=== PATIENT | female | born 1955 | race Caucasian/White ===

== ENCOUNTER → 2022-07-24 09:47 | Outpatient (CLI) | payer MEDICARE, BC, SELFPAY | PROVIDERS: PCP Physician Assistant Medical; Visit Provider Physician Assistant Medical | DX: R10.9 Unspecified abdominal pain (principal) | CPT/HCPCS: 87086 ==

== ENCOUNTER 2022-07-24 14:46 | Emergency (ER) | payer MEDICARE, BC, SELFPAY ==
[2022-07-24 15:51] VITALS: BP 104/59; PULSE 88; RESP 16; TEMP 36.9; O2SAT 100; BMI 31.8
--- NOTE | 2022-07-24 15:58 | DI.RAD.S_ITS ---
PROCEDURE: XR CHEST 1V INDICATIONS: chest pain TECHNIQUE: One view of the chest was acquired. COMPARISON: [facility], CT, CT ABDOMEN PELVIS W CON, 07/24/2022, 16:49. FINDINGS: Surgical changes and devices: None. Lungs and pleura: No consolidation. Bibasilar atelectasis. No pleural effusions or pneumothorax. Mediastinum: Mediastinal contours appear normal. Heart size is normal. Bones and chest wall: No suspicious bony lesions. Prior right proximal humerus fracture. Overlying soft tissues appear unremarkable. IMPRESSION: Bibasilar atelectasis. Dictated by: Blayne Brennan M.D. on 07/24/2022 at 17:40 Approved by: Blayne Brennan M.D. on 07/24/2022 at 17:41
[2022-07-24 16:28] LABS: Add Manual Diff / Slide Review NO; Basophils Absolute Auto 0 /uL (0-100); Basophils Percent Auto 0.3 % (0-2); Eosinophils Absolute Auto 0 /uL (0-450); Eosinophils Percent Auto 0.1 % (2-4); Hematocrit 45.9 % (36-46); Hemoglobin 15.4 g/dL (12.0-16.0); Lymphocytes Absolute Auto 1000 /uL (1100-4500); Lymphocytes Percent Auto 6.2 % (25-40); Mean Corpuscular HGB Conc 33.5 % (30-36); Mean Corpuscular Hemoglobin 29.3 PG (26-34); Mean Corpuscular Volume 87.4 fL (80-100); Monocytes Absolute Auto 500 /uL (0-900); Monocytes Percent Auto 3.4 % (3-14); Neutrophils Absolute Auto 14000 /uL (1500-7000); Platelet Count 300 X10^3/uL (150-400); Red Blood Cell Count 5.25 X10^6/uL (4.0-5.2); Red Cell Distribution Width 14.4 % (11.6-14.8); White Blood Cell Count 15.6 X10^3/uL (4.5-11.0)
--- NOTE | 2022-07-24 16:37 | ED.GENADULT ---
HPI - General Adult General Chief complaint: Abdominal Pain Stated complaint: abd pain since 0400 Time Seen by Provider: 07/24/22 16:23 Source: patient Mode of arrival: Wheelchair History of Present Illness HPI narrative: Patient is a 67-year-old female who is here for evaluation of generalized abdominal pain since 0400 hours this morning. Has had quite a bit of nausea. No diarrhea. No urinary symptoms. She went to the clinic on [address] who told her that she had a urinary tract infection but did not start her on any antibiotics. Patient was sent here to the emergency department for further evaluation. She does describe cramping but she feels it is more muscular cramping rather than intestinal cramping. No fevers. No prior abdominal surgeries. Hard for her to completely describe where she is having the discomfort is more generalized pain. No chest pain. Related Data Home Medications Medication Instructions Recorded Confirmed levothyroxine 75 mcg capsule 75 mcg PO DAILY 07/24/22 07/24/22 sertraline 25 mg tablet 25 mg PO DAILY 07/24/22 07/24/22 Previous Rx's Medication Instructions Recorded dicyclomine 10 mg capsule 10 mg PO TID PRN Abdominal spasms 07/24/22 #20 caps metoclopramide HCl 10 mg tablet 10 mg PO Q6H PRN nausea and 07/24/22 (Reglan) vomiting #10 tabs Allergies Allergy/AdvReac Type Severity Reaction Status Date / Time No Known Drug Allergies Allergy Verified 07/24/22 09:14 Review of Systems Review of Systems ROS Unobtainable: All systems reviewed & are unremarkable except as noted in HPI and below Patient History Social History Smoking Status: Never smoker Smoking Status: Never smoker alcohol intake frequency: a few times a month Substance Use Type: does not use Exam Initial Vital Signs Initial Vital Signs: Vital Signs Temperature 98.5 F 07/24/22 15:51 Pulse Rate 88 07/24/22 15:51 Respiratory Rate 16 07/24/22 15:51 Blood Pressure 104/59 L 07/24/22 15:51 Pulse Oximetry 100 07/24/22 15:51 Oxygen Delivery Method Room Air 07/24/22 15:51 Const General: cooperative, comfortable and No ill appearing [facility] Head: normal to inspection and normocephalic Resp Effort & Inspection: normal respiratory effort Auscultation: clear to auscultation bilaterally Cardio Rate: regular rate Rhythm: regular rhythm GI Inspection: normal to inspection and non-distended Palpation: No firm, No guarding and tender (Diffuse tenderness) Skin General: no rashes or lesions noted Neuro General: patient alert, patient awake, patient oriented x3 and moves all extremities Extrem General: normal to inspection and capillary refill normal Course Orders Ordered: ED Orders 07/24/22 15:58 XR chest 1V Stat 07/24/22 16:05 EKG-12 Lead Stat 07/24/22 16:11 COVID19 -Nasal RAPID Stat Complete Blood Count AUTO DIFF Stat Comprehensive Metabolic Panel Stat Lipase Stat Magnesium Stat PTT Partial Thromboplastin Michael Stat Prothrombin Time INR Stat Troponin & CK Cardiac Panel Stat Urine Microscopic Stat 07/24/22 16:38 CT abdomen pelvis w con Stat 07/24/22 17:54 US abdomen limited Stat Discontinued Medications Aspirin (Aspirin 81 Mg Chew Tab) 324 mg PO NOW ONE Stop: 07/24/22 15:59 Last Admin: 07/24/22 16:44 Dose: Not Given Documented By: BARB Metoclopramide HCl (Metoclopramide 10 Mg/2 Ml Inj) 10 mg IV NOW ONE Stop: 07/24/22 19:13 Morphine Sulfate (Morphine 4 Mg/Ml Inj) 4 mg IV NOW ONE Stop: 07/24/22 16:39 Last Admin: 07/24/22 16:48 Dose: 4 mg Documented By: BARB Ondansetron HCl (Ondansetron 4 Mg/2 Ml Inj) 4 mg IV NOW ONE Stop: 07/24/22 16:39 Last Admin: 07/24/22 16:51 Dose: 4 mg Documented By: BARB Vital Signs Vital signs: Vital Signs - 8 hr 07/24/22 15:51 07/24/22 17:08 07/24/22 18:34 Temperature 98.5 F Pulse Rate 88 85 93 H Respiratory Rate 16 20 25 H Blood Pressure 104/59 L 95/51 L 97/55 L Pulse Oximetry 100 99 98 Oxygen Delivery Method Room Air Room Air Room Air Medical Decision Making Lab Data Lab results reviewed: Yes I reviewed the patient's lab results. 07/24/22 16:11 07/24/22 16:11 Labs: Lab Results 07/24/22 07/24/22 07/24/22 Range/Units 16:11 16:11 16:11 WBC 15.6 H (4.5-11.0) X10^3/uL RBC 5.25 H (4.0-5.2) X10^6/uL Hgb 15.4 (12.0-16.0) g/dL Hct 45.9 (36-46) % MCV 87.4 (80-100) fL MCH 29.3 (26-34) PG MCHC 33.5 (30-36) % RDW 14.4 (11.6-14.8) % Plt Count 300 (150-400) X10^3/uL Neut % (Auto) 90.0 H (50-75) % Lymph % (Auto) 6.2 L (25-40) % [place] % (Auto) 3.4 (3-14) % Eos % (Auto) 0.1 L (2-4) % Baso % (Auto) 0.3 (0-2) % Neut # (Auto) 34044 H (0591-0343) /uL Lymph # (Auto) 1000 L (9143-0913) /uL [place] # (Auto) 500 (0-900) /uL Eos # (Auto) 0 (0-450) /uL Baso # (Auto) 0 (0-100) /uL PT 12.6 (10.1-12.7) SECONDS INR 1.1 (0.9-1.3) APTT 30 (26-36) SECONDS Sodium 137 (137-145) mmol/L Potassium 4.2 (3.4-5.1) mmol/L Chloride 102 (98-107) mmol/L Carbon Dioxide 27 (22-32) mmol/L BUN 19 H (7-17) mg/dL Creatinine 0.76 (0.52-1.04) mg/dL Estimated GFR > 60 (>60) mL/min BUN/Creatinine Ratio 25.0 H (6-22) Glucose 112 H (80-110) mg/dL Calcium 8.8 (8.4-10.2) mg/dL Magnesium 2.2 (1.6-2.3) mg/dL Total Bilirubin 0.9 (0.2-1.3) mg/dL AST 26 (14-36) IU/L ALT 26 (<35) IU/L Alkaline Phosphatase 71 (38-126) U/L Total Creatine Kinase 58 (30-135) U/L CK-MB (CK-2) TNP CK-MB (CK-2) Rel Index TNP Troponin I < 0.012 (0.01-0.034) ng/mL Total Protein 7.4 (6.3-8.2) g/dL Albumin 4.3 (3.5-5.0) g/dL Globulin 3.1 (1.7-4.1) g/dL Albumin/Globulin Ratio 1.4 (1.0-2.8) Lipase 96 (23-300) U/L Urine RBC (0-5/HPF) Urine WBC (0-5/HPF) Ur Squamous Epith Cells (0-5/HPF) Urine Bacteria (None) Hyaline Casts (None) Ur Culture Indicated? SARS-CoV-2 (PCR) (Negative) 07/24/22 07/24/22 Range/Units 16:11 16:11 WBC (4.5-11.0) X10^3/uL RBC (4.0-5.2) X10^6/uL Hgb (12.0-16.0) g/dL Hct (36-46) % MCV (80-100) fL MCH (26-34) PG MCHC (30-36) % RDW (11.6-14.8) % Plt Count (150-400) X10^3/uL Neut % (Auto) (50-75) % Lymph % (Auto) (25-40) % [place] % (Auto) (3-14) % Eos % (Auto) (2-4) % Baso % (Auto) (0-2) % Neut # (Auto) (1032-1100) /uL Lymph # (Auto) (9436-0395) /uL [place] # (Auto) (0-900) /uL Eos # (Auto) (0-450) /uL Baso # (Auto) (0-100) /uL PT (10.1-12.7) SECONDS INR (0.9-1.3) APTT (26-36) SECONDS Sodium (137-145) mmol/L Potassium (3.4-5.1) mmol/L Chloride (98-107) mmol/L Carbon Dioxide (22-32) mmol/L BUN (7-17) mg/dL Creatinine (0.52-1.04) mg/dL Estimated GFR (>60) mL/min BUN/Creatinine Ratio (6-22) Glucose (80-110) mg/dL Calcium (8.4-10.2) mg/dL Magnesium (1.6-2.3) mg/dL Total Bilirubin (0.2-1.3) mg/dL AST (14-36) IU/L ALT (<35) IU/L Alkaline Phosphatase (38-126) U/L Total Creatine Kinase (30-135) U/L CK-MB (CK-2) CK-MB (CK-2) Rel Index Troponin I (0.01-0.034) ng/mL Total Protein (6.3-8.2) g/dL Albumin (3.5-5.0) g/dL Globulin (1.7-4.1) g/dL Albumin/Globulin Ratio (1.0-2.8) Lipase (23-300) U/L Urine RBC 1-5/hpf (0-5/HPF) Urine WBC 1-5/hpf (0-5/HPF) Ur Squamous Epith Cells 1-5 /hpf (0-5/HPF) Urine Bacteria Few (2-10) H (None) Hyaline Casts 0-1/lpf (None) Ur Culture Indicated? Cult not indicated SARS-CoV-2 (PCR) Negative (Negative) Urine Dip Bedside Urine Glucose Negative Bedside Urine Bilirubin + 1 Bedside Urine Ketone +/- 5 Urine Specific [place] 1.025 Bedside Urine Occult Blood - Negative Bedside Urine pH 5.5 Bedside Urine Protein + 30 Bedside Urine Urobilinogen - Negative Bedside Urine Nitrite - Negative Bedside Urine Leukocytes - Negative Esterase Point of care testing: Urine Dip Bedside Urine Glucose Negative Bedside Urine Bilirubin + 1 Bedside Urine Ketone +/- 5 Urine Specific [place] 1.025 Bedside Urine Occult Blood - Negative Bedside Urine pH 5.5 Bedside Urine Protein + 30 Bedside Urine Urobilinogen - Negative Bedside Urine Nitrite - Negative Bedside Urine Leukocytes - Negative Esterase Imaging Data Chest x-ray: Radiologist's Impression: PROCEDURE:? XR CHEST 1V ? INDICATIONS:? chest pain ? TECHNIQUE:? One view of the chest was acquired.? ? COMPARISON:? [facility], CT, CT ABDOMEN PELVIS W CON, 07/24/2022, 16:49. ? FINDINGS:? ? Surgical changes and devices:? None.? ? Lungs and pleura:? No consolidation.? Bibasilar atelectasis.? No pleural effusions or pneumothorax.? ? Mediastinum:? Mediastinal contours appear normal.? Heart size is normal.? ? Bones and chest wall:? No suspicious bony lesions.? Prior right proximal humerus fracture.? Overlying soft tissues appear unremarkable.? ? IMPRESSION:? Bibasilar atelectasis. CT scan - abdomen/pelvis: Radiologist's Impression: PROCEDURE:? CT ABDOMEN PELVIS W CON ? INDICATIONS:? Generalized abdominal pain ? TECHNIQUE:? After the administration of IV contrast, axial sections were acquired from the lung bases to the pubic symphysis.? Coronal and sagittal reformats were performed.? For radiation dose reduction, the following was used:? automated exposure control, adjustment of mA and/or kV according to patient size. ? COMPARISON:? None. ? FINDINGS:? Image quality:? Excellent.? ? Lung bases:? Linear bibasilar opacities likely scarring versus atelectasis. Heart:? No significant findings. ? ? ABDOMEN: Liver:? Liver is enlarged measuring 18.3 cm. Gallbladder:? Unremarkable.? ? Biliary ducts:? Unremarkable.? ? Pancreas:? Unremarkable.? ? Spleen:? Unremarkable.? ? Adrenal Glands:? Unremarkable.? ? Kidneys and Ureters:? Unremarkable.? ? ? Stomach and Bowel:? Stomach, small bowel loops, and colon are nonobstructive.? There is a very minimal appearance of stranding in the pericolonic fat adjacent to scattered small bowel loops.? However, bowel loops do not demonstrate appreciable wall thickening.? There is a 4.7 cm rounded focus what appears to be dilated bowel with air and contents inferior to the pancreatic head on series 2, image 40. Origin is difficult to definitively visualize, although suspected to be related to small bowel.? Peritoneum:? No abnormal intraperitoneal fluid.? No free air.? ? Ventral Wall: ? No hernia.? Abdominal Nodes:? No retroperitoneal or mesenteric adenopathy by size criteria.? Vessels:? Aorta and inferior vena cava are normal in size.? ? PELVIS: Pelvic Organs:? Unremarkable.? ? Bladder:? Unremarkable.? ? Pelvic Nodes: No enlarged lymph nodes.? Miscellaneous: No inguinal hernias are seen. ? ? ? Bones:? Unremarkable.? IMPRESSION:? ? Focus of air and apparent bowel contents within the mid abdomen as described above.? This is suspected to be related to a loop of bowel or potentially prominent proximal small bowel diverticulum.? However, origin is poorly characterized.? As clinically indicated for further evaluation on a nonemergent basis, repeat study with oral contrast is recommended. ? ? Nonspecific appearance mild stranding within the mesenteric fat adjacent to scattered bowel loops, separate from the above described probable diverticulum.? Given lack of small bowel thickening.? This may represent mild appearance in general inflammation. US - abdomen: Radiologist's Impression: PROCEDURE: US ABDOMEN LIMITED ? INDICATIONS:? RUQ EVAL FOR GB PATHOLOGY ? TECHNIQUE:? Real-time focused scanning was performed of the abdomen, with image documentation.? ? COMPARISON:? [facility], CT, CT ABDOMEN PELVIS W CON, 07/24/2022, 16:49. ? FINDINGS:? Liver measures 15.6 cm. Sludge is present within the gallbladder.? Wall thickness is normal measuring 2.3 mm.? Common bile duct measures 5.1 mm. ? IMPRESSION:? Mild gallbladder sludge.? Otherwise, unremarkable.? ECG Data Attestation: I personally reviewed and interpreted this ECG as follows: Interpretation: Sinus rhythm Ventricular rate 80 Normal axis Normal QRS Normal QTC No ST T wave changes MDM Narrative Medical decision making narrative: Her urinalysis today is not consistent with a urinary tract infection. She does have a leukocytosis. Her right upper quadrant ultrasound does show sludge but no signs of acute cholecystitis. Her LFTs and bilirubin are unremarkable. She does have nonspecific inflammation of her colon. No signs of bowel obstruction or diverticulitis or perforations or appendicitis. Patient is not having any diarrhea. I did discuss all this with her. We also discussed the possibility of a small-bowel diverticulum in the she needs to follow up with her primary doctor regarding this. Has no indication for antibiotics. No indication for surgical consultation will discharge patient home with return precautions and nausea medications. She expressed understanding and agreement. Discharge Plan Departure Patient Disposition: Home Clinical Impression: Abdominal pain Instructions: DI for Abdominal Pain-Adult Activity Restrictions/Additional Instructions: I do recommend that you use the nausea medication and also the antispasm medication as needed and as directed. Is also important that you contact your primary doctor when you return home for further evaluation of the incidental findings noted on the CT scan. Return to an emergency department for new or worsening symptoms. Prescriptions: New metoclopramide HCl [Reglan] 10 mg tablet 10 mg PO Q6H PRN (Reason: nausea and vomiting) Qty: 10 0RF dicyclomine 10 mg capsule 10 mg PO TID PRN (Reason: Abdominal spasms) Qty: 20 0RF No Action levothyroxine 75 mcg capsule 75 mcg PO DAILY Rx Instructions: 6 times a week sertraline 25 mg tablet 25 mg PO DAILY Stand Alone Forms: Patient Portal/API
--- NOTE | 2022-07-24 16:38 | DI.CT.S_ITS ---
PROCEDURE: CT ABDOMEN PELVIS W CON INDICATIONS: Generalized abdominal pain TECHNIQUE: After the administration of IV contrast, axial sections were acquired from the lung bases to the pubic symphysis. Coronal and sagittal reformats were performed. For radiation dose reduction, the following was used: automated exposure control, adjustment of mA and/or kV according to patient size. COMPARISON: None. FINDINGS: Image quality: Excellent. Lung bases: Linear bibasilar opacities likely scarring versus atelectasis. Heart: No significant findings. ABDOMEN: Liver: Liver is enlarged measuring 18.3 cm. Gallbladder: Unremarkable. Biliary ducts: Unremarkable. Pancreas: Unremarkable. Spleen: Unremarkable. Adrenal Glands: Unremarkable. Kidneys and Ureters: Unremarkable. Stomach and Bowel: Stomach, small bowel loops, and colon are nonobstructive. There is a very minimal appearance of stranding in the pericolonic fat adjacent to scattered small bowel loops. However, bowel loops do not demonstrate appreciable wall thickening. There is a 4.7 cm rounded focus what appears to be dilated bowel with air and contents inferior to the pancreatic head on series 2, image 40. Origin is difficult to definitively visualize, although suspected to be related to small bowel. Peritoneum: No abnormal intraperitoneal fluid. No free air. Ventral Wall: No hernia. Abdominal Nodes: No retroperitoneal or mesenteric adenopathy by size criteria. Vessels: Aorta and inferior vena cava are normal in size. PELVIS: Pelvic Organs: Unremarkable. Bladder: Unremarkable. Pelvic Nodes: No enlarged lymph nodes. Miscellaneous: No inguinal hernias are seen. Bones: Unremarkable. IMPRESSION: Focus of air and apparent bowel contents within the mid abdomen as described above. This is suspected to be related to a loop of bowel or potentially prominent proximal small bowel diverticulum. However, origin is poorly characterized. As clinically indicated for further evaluation on a nonemergent basis, repeat study with oral contrast is recommended. Nonspecific appearance mild stranding within the mesenteric fat adjacent to scattered bowel loops, separate from the above described probable diverticulum. Given lack of small bowel thickening. This may represent mild appearance in general inflammation. Dictated by: Luz Carrero M.D. on 07/24/2022 at 17:31 Approved by: Luz Carrero M.D. on 07/24/2022 at 17:37
[2022-07-24 16:40] LABS: Alanine Aminotransferase 26 IU/L (<35); Albumin 4.3 g/dL (3.5-5.0); Albumin Globulin Ratio 1.4 (1.0-2.8); Alkaline Phosphatase 71 U/L (38-126); Aspartate Aminotransferase 26 IU/L (14-36); Bilirubin Total 0.9 mg/dL (0.2-1.3); Blood Urea Nitrogen 19 mg/dL (7-17); Calcium 8.8 mg/dL (8.4-10.2); Carbon Dioxide 27 mmol/L (22-32); Chloride 102 mmol/L (98-107); Creatine Kinase 58 U/L (30-135); Estimated Glomerular Filt Rate > 60 mL/min (>60); Globulin 3.1 g/dL (1.7-4.1); Glucose 112 mg/dL (80-110); HEMOLYSIS 18 (0-50); Lipase 96 U/L (23-300); Magnesium 2.2 mg/dL (1.6-2.3); Potassium 4.2 mmol/L (3.4-5.1); Sodium 137 mmol/L (137-145); Total Protein 7.4 g/dL (6.3-8.2)
[2022-07-24] MEDS: MORPHINE 4 MG/ML INJ IV (16:48)
[2022-07-24 16:49] LABS: INR 1.1 (0.9-1.3); Prothrombin Time 12.6 SECONDS (10.1-12.7)
[2022-07-24 16:51] LABS: Troponin I < 0.012 ng/mL (0.01-0.034)
[2022-07-24] MEDS: ONDANSETRON 4 MG/2 ML INJ IV (16:51)
[2022-07-24 16:52] LABS: PTT Partial Thromboplastin Tim 30 SECONDS (26-36)
[2022-07-24 17:08] VITALS: BP 95/51; PULSE 85; RESP 20; O2SAT 99
[2022-07-24 17:41] LABS: COVID19 -Nasal RAPID Negative (Negative)
--- NOTE | 2022-07-24 17:54 | DI.US.S_ITS ---
PROCEDURE: US ABDOMEN LIMITED INDICATIONS: RUQ EVAL FOR GB PATHOLOGY TECHNIQUE: Real-time focused scanning was performed of the abdomen, with image documentation. COMPARISON: , CT, CT ABDOMEN PELVIS W CON, 07/24/2022, 16:49. FINDINGS: Liver measures 15.6 cm. Sludge is present within the gallbladder. Wall thickness is normal measuring 2.3 mm. Common bile duct measures 5.1 mm. IMPRESSION: Mild gallbladder sludge. Otherwise, unremarkable. Dictated by: Luz Carrero M.D. on 07/24/2022 at 18:44 Approved by: Luz Carrero M.D. on 07/24/2022 at 18:44
[2022-07-24 18:14] LABS: Bacteria Urine Few (2-10); Culture Indicated Urine Cult Not Indicated; Hyaline Casts Urine 0-1/LPF; RBC Urine 1-5/HPF (0-5/HPF); Squamous Epithelial Cell Urine 1-5 /HPF (0-5/HPF); WBC Urine 1-5/HPF (0-5/HPF)
[2022-07-24 18:34] VITALS: BP 97/55; PULSE 93; RESP 25; O2SAT 98
[2022-07-24] MEDS: METOCLOPRAMIDE 10 MG/2 ML INJ IV (19:36)
[2022-07-24 20:05] VITALS: BP 96/54; PULSE 96; RESP 20; O2SAT 97
== END 2022-07-24 20:05 | disposition home or self-care (01) ==
PROVIDERS: Emergency Provider Emergency Medicine
DX: R10.84 Generalized abdominal pain (principal); R07.9 Chest pain, unspecified; Z20.822 Contact with and (suspected) exposure to COVID-19; R10.9 Unspecified abdominal pain
CPT/HCPCS: 36415; 71045; 74177; 76705; 80053; 81003; 81015; 82550; 83690; 83735; 84484; 85025; 85610; 85730; 87086; 87635; 93005; 96374; 96375; 99284; C9803; J2270; J2405; J2765; Q9967